=== PATIENT | male | born 1995 | race Caucasian/White ===

== ENCOUNTER 2025-07-27 11:48 | Emergency (ER) | payer MEDICAID ==
[~2025-07-27] VITALS: Ht 177.8 cm; Wt 75.0 kg
[2025-07-27 11:55] VITALS: BP 157/104; PULSE 88; TEMP 97.8; O2SAT 100
--- NOTE | 2025-07-27 13:57 | Physician Documentation ---
History of Present Illness ~ Chief Complaint: Back Pain Stated Complaint: SEE CHIEF Time Seen by MD: 13:15 HPI Patient is seen today with complaints of low back pain and thoracic back pain after he accidentally fell backwards off of about a 6-8 foot ledge. Patient states he was seen three days ago just after the accident at [facility] and did have CT scans performed of his head C-spine and thoracic and lumbar spine and was cleared of any fractures. Patient states his low back is still hurting as well as his thoracic back. Patient states that he got some ibuprofen from a roommate that helped his pain significantly. Patient deny denies any shortness of breath or abdominal pain or nausea, vomiting, diarrhea. Patient has no other concern or complaint at this time. He denies any loss of consciousness at the time but states that when he fell back he had accidentally fallen asleep and then fallen backwards. Medication Reconciliation Allergies: Coded Allergies: No Known Allergies (Unverified , 07/27/25) Review of Systems Constitutional: Denies: chills, fever, weakness Eyes: Denies: pain, blurred vision ENT: Denies: ear pain, nose pain, throat pain, mouth pain Respiratory: Denies: cough, shortness of breath Cardiovascular: Denies: chest pain, palpitations Gastrointestinal: Denies: abdominal pain, nausea, vomiting Genitourinary: Denies: burning, dysuria Male Genitalia: Denies: penile discharge, testicular pain Neurological: Denies: headache, dizziness Musculoskeletal: Denies: pain, swelling Integumentary: Denies: rash, lesions Allergic/Immunologic: Denies: hives, itching Hematologic/Lymphatic: Denies: no symptoms reported Psychiatric: Denies: depression, anxiety Physical Exam Physical Exam Vital Signs: Temperature: 97.8, Source: Temporal, Heart Rate: 88, Respiratory Rate: 18, BP: 157/104, Pulse Oximetry: 100, Weight: 75.000 Physical Exam General: Awake and Alert, no acute distress. HEENT: Conjunctiva pink, Sclera clear, Mucus Membranes moist. Neck: Supple without masses and tenderness. Resp: Unlabored. Lungs clear to auscultation bilaterally. Heart: Regular Rate and rhythm, normal S1 and S2 without murmur, rub or gallop. Abdomen: Soft and non tender no organomegaly Musculoskeletal: Patient on exam does have significant tenderness to palpation of the thoracic and lumbar spine paraspinal muscles and posterior ribs. Patient does have decreased range of motion of the spine in all planes of motion. Patient is neurovascularly intact distally of the bilateral upper and lower extremities. Motor function and strength intact distally. Extremities: No cyanosis,clubbing or edema. Skin: Patient does have very small ecchymosis and skin markings of the thoracic back likely from trauma. Progress Results/Orders Results/Orders Vital Signs 07/27/25 11:55 Temp 97.8 Pulse 88 Resp 18 B/P (MAP) 157/104 Pulse Ox 100 Medical Decision Making Findings Patient is seen today with complaints of low back pain and thoracic back pain after he accidentally fell backwards off of about a 6-8 foot ledge. Patient states he was seen three days ago just after the accident at [facility] and did have CT scans performed of his head C-spine and thoracic and lumbar spine and was cleared of any fractures. Patient states his low back is still hurting as well as his thoracic back. Patient states that he got some ibuprofen from a roommate that helped his pain significantly. Patient deny denies any shortness of breath or abdominal pain or nausea, vomiting, diarrhea. Patient has no other concern or complaint at this time. He denies any loss of consciousness at the time but states that when he fell back he had accidentally fallen asleep and then fallen backwards. Patient was given Toradol 30 mg IM in the ED today along with prescription for ibuprofen 800 mg one tab 3 times a day and Tylenol a 1000 mg 3 times a day for 10 days. Patient will return to ED with any worsening, concerning or changing symptoms. Patient will follow up with primary care in 7-10 days if no better as needed sooner. Departure Disposition: HOME / SELF CARE / HOMELESS Impression: Primary Impression: Low back pain Qualified Codes: M54.50 - Low back pain, unspecified Additional Impressions: Strain of thoracic region Qualified Codes: S29.019A - Strain of muscle and tendon of unspecified wall of thorax, initial encounter Lumbosacral strain Qualified Codes: S39.012A - Strain of muscle, fascia and tendon of lower back, initial encounter Condition: Improved Discharge Instructions: Acute Back Pain, Adult Additional Instructions: Patient was given Toradol 30 mg IM in the ED today along with prescription for ibuprofen 800 mg one tab 3 times a day and Tylenol a 1000 mg 3 times a day for 10 days. Patient will return to ED with any worsening, concerning or changing symptoms. Patient will follow up with primary care in 7-10 days if no better as needed sooner. Referrals: NO PRIMARY CARE PROVIDER (PCP) Prescriptions Acetaminophen (Tylenol Extra Strength) 500 Mg Tablet 2 TAB PO Q6H PRN PRN for pain or fever for 7 Days, #56 TAB Prov: ANNELISE HEDRICK 07/27/25 Ibuprofen (Ibuprofen) 800 Mg Tablet 1 TAB PO Q8H for pain for 10 Days, #30 TAB 0 Refills Prov: ANNELISE HEDRICK 07/27/25 Signature Scribe Signature: No scribe Attestation: No scribe ANNELISE HEDRICK Jul 27, 2025 13:57
[2025-07-27] MEDS ORDERED: IBUP-1986 PO (14:00)
[2025-07-27] MEDS ORDERED: ACET-1025 PO (14:00)
[2025-07-27 14:13] VITALS: RESP 18
[2025-07-27] MEDS: ketorolac trometh 30MG/ML vial 30 MG/ML VIAL IM STA (14:13)
== END 2025-07-27 14:16 | disposition home or self-care (01) ==
LOC: ER 11:49
DX: S29.012A Strain of muscle and tendon of back wall of thorax, initial encounter (principal); S39.012A Strain of muscle, fascia and tendon of lower back, initial encounter; W18.30XA Fall on same level, unspecified, initial encounter; Y93.89 Activity, other specified; Y92.89 Other specified places as the place of occurrence of the external cause; Y99.8 Other external cause status
CPT/HCPCS: 96372; 99284; J1885